=== PATIENT | female | born 1950 | race Caucasian/White ===

== ENCOUNTER 2017-04-30 05:00 | Day surgery (SDC) | payer OTHER ==
[~2017-04-30 05:00] MED LIST: AMILODIPINE PO; ASPIR 8181 MG PO; LOSARTAN POTAS100 MG PO; METFORMIN HCL500 MG PO
== END 2017-04-30 12:55 | disposition home or self-care (01) ==
LOC: CIR.AMB 05:00
DX: D12.9 Benign neoplasm of anus and anal canal (principal); D12.8 Benign neoplasm of rectum; Z86.010 Personal history of colon polyps; K64.2 Third degree hemorrhoids